=== PATIENT | female | born 1940 | race Caucasian/White ===

== ENCOUNTER 2016-09-07 10:40 | Outpatient (CLI) | payer MEDICARE, OTHER ==
[~2016-09-07 10:40] MED LIST: ATENOLOL25 MG PO; CALCIUM 600600 M2 PO; CENTRUM SILVER1 TA2 PO; CITALOPRAM20 MG PO; GABAPENTIN300 MG PO; GARLIC OIL1000 MG PO; HYDROCHLOROTHIA25 M1 PO; HYDROXYZINE 25M25 MG PO; IBUPROFEN 600M600 MG PO; LISINOPRIL 10MG10 MG PO; LOVASTATIN10 MG PO; METFORMIN500 MG PO; NATURAL FISH1200 MG PO; TIZANIDINE HCL 44 MG PO; TRAMADOL 50MG T50 M1 PO; TRAMADOL 50MG T50 MG PO; VIVELLE-DO0.1 MG/24 ID
[2016-09-07 11:00] VITALS: BP 105/55
[2016-09-07 11:30] VITALS: BP 107/58
[2016-09-07 12:00] VITALS: BP 120/63
[2016-09-07 14:31] VITALS: BP 138/54
[2016-09-07 15:03] LABS: BUN 30 mg/dL (7-18)
[2016-09-07 15:05] LABS: GFR (ESTIMATED) 40 ML/MIN (59-)
== END 2016-09-07 12:00 | disposition home or self-care (01) ==
LOC: COP 10:40 → LAB 10:40 → COP 12:00
PROVIDERS: Internal Medicine
DX: Z16.24 Resistance to multiple antibiotics (principal); N39.0 Urinary tract infection, site not specified
CPT/HCPCS: J1335

== ENCOUNTER → 2016-09-08 | Outpatient (CLI) | payer MEDICARE, OTHER ==
[~2016-09-08] VITALS: Ht 165.1 cm; Wt 79.4 kg
[2016-09-08 10:21] VITALS: BP 110/59
[2016-09-08 10:30] VITALS: BP 110/66
[2016-09-08 10:59] VITALS: BP 120/60
== END ==
LOC: COP 10:00
DX: N39.0 Urinary tract infection, site not specified (principal); Z16.24 Resistance to multiple antibiotics
CPT/HCPCS: J1335

== ENCOUNTER → 2016-09-09 | Outpatient (CLI) | payer MEDICARE, OTHER ==
[~2016-09-09] VITALS: Ht 165.1 cm; Wt 79.4 kg
[2016-09-09 13:00] VITALS: BP 113/61
[2016-09-09 13:20] VITALS: BP 110/63; BP 115/66
== END ==
LOC: COP 10:00
DX: N39.0 Urinary tract infection, site not specified (principal); Z16.24 Resistance to multiple antibiotics
CPT/HCPCS: J1335

== ENCOUNTER 2016-09-11 10:50 | Outpatient (CLI) | payer MEDICARE, OTHER ==
[2016-09-11 11:21] VITALS: BP 102/40
[2016-09-11 11:36] VITALS: BP 108/64
[2016-09-11 11:51] VITALS: BP 102/60
[2016-09-11 12:03] VITALS: BP 110/67
== END 2016-09-11 12:11 | disposition home or self-care (01) ==
LOC: COP 10:50
DX: N39.0 Urinary tract infection, site not specified (principal); Z16.24 Resistance to multiple antibiotics; M54.5 Low back pain
CPT/HCPCS: J1335

== ENCOUNTER 2016-09-12 10:35 | Outpatient (CLI) | payer MEDICARE, OTHER ==
[2016-09-12 10:59] VITALS: BP 109/55
[2016-09-12 11:14] VITALS: BP 104/58
[2016-09-12 11:29] VITALS: BP 110/60
[2016-09-12 11:45] VITALS: BP 108/65
== END 2016-09-12 11:50 | disposition home or self-care (01) ==
LOC: COP 10:35
DX: N39.0 Urinary tract infection, site not specified (principal); Z16.24 Resistance to multiple antibiotics; M54.5 Low back pain
CPT/HCPCS: J1335

== ENCOUNTER 2016-09-13 10:45 | Outpatient (CLI) | payer MEDICARE, OTHER ==
[2016-09-13 11:10] VITALS: BP 106/50
[2016-09-13 11:50] VITALS: BP 106/56
== END 2016-09-13 11:55 | disposition home or self-care (01) ==
LOC: COP 10:45
DX: N39.0 Urinary tract infection, site not specified (principal); Z16.24 Resistance to multiple antibiotics; M54.5 Low back pain
CPT/HCPCS: J1335

== ENCOUNTER 2017-02-08 09:15 | Outpatient (CLI) | payer MEDICARE, OTHER ==
[~2017-02-08 09:15] MED LIST changes: +AMOXICOT500 MG PO; +DICLOFENAC 50MG50 MG PO; +FAMOTIDINE 20MG20 MG PO; +PROBIOTIC1 EAC3 PO
[2017-02-08 09:55] VITALS: BP 105/53
== END 2017-02-08 10:10 | disposition home or self-care (01) ==
LOC: COP 09:15
DX: N39.0 Urinary tract infection, site not specified (principal); B96.20 Unspecified Escherichia coli [E. coli] as the cause of diseases classified elsewhere; B96.1 Klebsiella pneumoniae [K. pneumoniae] as the cause of diseases classified elsewhere
CPT/HCPCS: J1335

== ENCOUNTER → 2017-02-09 | Outpatient (CLI) | payer MEDICARE, OTHER ==
[2017-02-09 09:30] VITALS: BP 116/42
== END ==
LOC: COP 09:00
DX: N39.0 Urinary tract infection, site not specified (principal); B96.20 Unspecified Escherichia coli [E. coli] as the cause of diseases classified elsewhere; B96.1 Klebsiella pneumoniae [K. pneumoniae] as the cause of diseases classified elsewhere
CPT/HCPCS: J1335

== ENCOUNTER → 2017-02-10 | Outpatient (CLI) | payer MEDICARE, OTHER ==
[2017-02-10 13:50] VITALS: BP 111/46
== END ==
LOC: COP 09:00
DX: N39.0 Urinary tract infection, site not specified (principal); B96.20 Unspecified Escherichia coli [E. coli] as the cause of diseases classified elsewhere; B96.1 Klebsiella pneumoniae [K. pneumoniae] as the cause of diseases classified elsewhere
CPT/HCPCS: G0463; J1335

== ENCOUNTER → 2017-06-07 | Outpatient (CLI) | payer MEDICARE, OTHER ==
[2017-06-08 08:39] LABS: Iron 79 ug/dL (27-139); Iron Saturation 27 % (15-55); UIBC 215 ug/dL (118-369)
[2017-06-08 09:41] LABS: Vitamin B12 260 pg/mL (211-946)
== END ==
LOC: CARL-LAB 09:05
PROVIDERS: Internal Medicine
DX: D64.3 Other sideroblastic anemias (principal)

== ENCOUNTER → 2017-06-10 | Outpatient (CLI) | payer MEDICARE, OTHER ==
[2017-06-10 13:33] LABS: STOOL OCCULT BLOOD NEGATIVE (NEG)
== END ==
LOC: CARL-LAB 09:11
PROVIDERS: Internal Medicine
DX: D64.3 Other sideroblastic anemias (principal)
CPT/HCPCS: G0328